=== PATIENT | female | born 1955 | race African-American/Black ===

== ENCOUNTER 2022-05-18 11:07 | Inpatient (IN) | payer OTHER ==
[~2022-05-18] VITALS: Ht 157.5 cm; Wt 46.7 kg
[2022-05-18] MEDS ORDERED: MORPHINE SULFATE 4 MG/ML CPJ (NOT FOR IM USE) IV STA (11:25)
[2022-05-18] MEDS ORDERED: SODIUM CHLORIDE 0.9% 1,000 ML IV ONE (11:30)
[2022-05-18 12:33] LABS: BASOPHILS % 0.7 % (0.0-2.0); HEMATOCRIT. 40.1 % (36.0-48.0); HEMOGLOBIN. 12.7 g/dL (12.0-16.0); LYMPHOCYTES % 24.1 % (20.0-50.0); MEAN CORPUSCULAR HEMOGLOBIN 27.2 pg (28.0-32.0); MEAN CORPUSCULAR VOLUME 85.9 fL (81.0-99.0); MEAN PLATELET VOLUME 9.4 fl (7.4-10.4); MONOCYTES % 9.8 % (2.0-8.0); NEUTROPHILS % 65.4 % (40.0-76.0); PLATELET 289 x1000/uL (130-400); RED BLOOD CELL COUNT 4.67 mill/uL (4.2-5.4); RED CELL DISTRIBUTION WIDTH 21.2 % (11.6-14.6)
[2022-05-18] MEDS ORDERED: MORPHINE SULFATE 4 MG/ML CPJ (NOT FOR IM USE) IV ONE ×3 (14:15→17:45)
[2022-05-18 14:31] LABS: CLARITY URINE CLEAR (CLEAR); COLOR URINE YELLOW (YELLOW); KETONES URINE NEGATIVE (NEGATIVE); LEUKOCYTE ESTERASE URINE NEGATIVE (NEGATIVE); NITRITE URINE NEGATIVE (NEGATIVE); OCCULT BLOOD URINE NEGATIVE (NEGATIVE); PH URINE 8.5 (4.5-8.0); PROTEIN URINE TRACE (NEGATIVE); SPECIFIC GRAVITY URINE 1.014 (1.005-1.030)
[2022-05-18 14:39] LABS: PROTHROMBIN TIME 11.1 sec (9.6-11.0)
[2022-05-18 15:14] LABS: CHLORIDE 100 mEq/L (98-107)
[2022-05-18] MEDS ORDERED: BACLOFEN 10MG TABLET PO ONE (17:45)
[2022-05-18] MEDS ORDERED: HYDRALAZINE 20MG/ML VIAL IV ONE (17:45)
[2022-05-18] MEDS ORDERED: IOHEXOL-300 100 ML BOTTLE ONE (18:07)
[2022-05-18] MEDS ORDERED: IPRATROPIUM/ALBUTEROL 0.5-3(2.5)MG/3ML NEB NEB PRN (20:00)
[2022-05-18] MEDS ORDERED: DOCUSATE SODIUM 100MG CAPSULE PO PRN (20:00)
[2022-05-18] MEDS ORDERED: TRAMADOL 50MG TABLET PO PRN (20:00)
[2022-05-18] MEDS ORDERED: ZOLPIDEM TARTRATE 5MG TABLET PO PRN (20:00)
[2022-05-18] MEDS ORDERED: GUAIFENESIN 200MG/10ML SUGAR FREE UDC PO PRN (20:00)
[2022-05-18] MEDS ORDERED: MAGNESIUM/ALUMINUM HYDROXIDE/SIMETHICONE 30ML UDC PO PRN (20:00)
[2022-05-18] MEDS ORDERED: NITROGLYCERIN 0.4MG TABLET SL SL PRN (20:00)
[2022-05-18] MEDS ORDERED: ONDANSETRON HCL 4MG/2ML INJ IV PRN (20:00)
[2022-05-18] MEDS ORDERED: CLONIDINE 0.1MG TABLET PO PRN (20:00)
[2022-05-18] MEDS ORDERED: LEVOFLOXACIN 500MG PREMIX 100 ML IV SCH (20:30)
[2022-05-18] MEDS: AMLODIPINE 10MG TABLET PO SCH (20:48)
[2022-05-18 20:53] LABS: T4 FREE 1.2 ng/dL (0.76-1.46)
[2022-05-18] MEDS: MORPHINE SULFATE 2 MG/ML CPJ (NOT FOR IM USE) IV PRN (21:01)
[2022-05-18] MEDS: FAMOTIDINE 20MG TABLET PO SCH (21:11)
[2022-05-18] MEDS: ENOXAPARIN 60MG/0.6ML SYR SUBCUT SCH (21:11)
[2022-05-18 21:15] LABS: FOLIC ACID (FOLATE) SERUM 8.9 ng/mL (>5.38)
[2022-05-18] MEDS ORDERED: NALOXONE HCL 0.4MG/ML VIAL IV PRN (21:45)
[2022-05-19] MEDS: HYDROCODONE/ACETAMINOPHEN 10/325MG TABLET PO PRN ×3 (01:03→14:08)
[2022-05-19] MEDS: MORPHINE SULFATE 2 MG/ML CPJ (NOT FOR IM USE) IV PRN ×4 (03:08→19:54)
[2022-05-19 04:56] LABS: CHLORIDE 98 mEq/L (98-107)
[2022-05-19 04:59] LABS: BASOPHILS % 0.5 % (0.0-2.0); EOSINOPHILS % 0.2 % (0.0-5.0); HEMATOCRIT. 39.6 % (36.0-48.0); HEMOGLOBIN. 12.7 g/dL (12.0-16.0); LYMPHOCYTES % 16.3 % (20.0-50.0); MEAN CORPUSCULAR VOLUME 84.5 fL (81.0-99.0); MEAN PLATELET VOLUME 9.4 fl (7.4-10.4); MONOCYTES % 10.1 % (2.0-8.0); NEUTROPHILS % 72.9 % (40.0-76.0); PLATELET 298 x1000/uL (130-400); RED BLOOD CELL COUNT 4.69 mill/uL (4.2-5.4); RED CELL DISTRIBUTION WIDTH 21.2 % (11.6-14.6)
[2022-05-19 05:03] LABS: PHOSPHORUS 3.2 mg/dL (2.5-4.9)
[2022-05-19 06:46] LABS: CREATINE KINASE 29 IU/L (26-192); CREATINE KINASE MB FRACTION < 1.0 ng/mL (0.5-3.6)
[2022-05-19 09:13] LABS: BG BASE EXCESS 1.7 mmol/L (-2.0-2.0); BG CARBOXYHEMOGLOBIN 2.7 % (0.5-1.5); BG DEOXYHEMOGLOBIN 3.7 % (0.0-5.0); BG FRACTION INSPIRED OXYGEN 32; BG HCO3 ACT 26.4 mmol/L (22.0-26.0); BG METHEMOGLOBIN 0.3 % (0.0-1.5); BG OXYGEN SATURATION 96.2 % (92.0-98.5); BG OXYHEMOGLOBIN 93.3 % (94.0-97.0); BG PCO2 42.1 mmHg (35.0-45.0); BG PH 7.416 (7.350-7.450); BG PO2 79.6 mmHg (75.0-100.0); BG SAMPLE SITE RIGHT RADIAL; BG TOTAL HEMOGLOBIN 13.4 g/dL (12.0-18.0); BG VENT MODE NASAL CANNULA
[2022-05-19] MEDS: KETOROLAC 15MG/ML VIAL IV PRN ×2 (10:38→23:14)
[2022-05-19 11:32] LABS: *AMPHETAMINES SCREEN URINE NEGATIVE (NEGATIVE); *BARBITURATES SCREEN URINE NEGATIVE (NEGATIVE); *BENZODIAZEPINES SCREEN URINE PRESUMTIVE POSITIVE (NEGATIVE); *COCAINE SCREEN URINE NEGATIVE (NEGATIVE); CANNABINOID URINE SCREEN PRESUMTIVE POSITIVE (NEGATIVE); METHADONE URINE SCREEN NEGATIVE (NEGATIVE); OPIATES URINE SCREEN PRESUMTIVE POSITIVE (NEGATIVE); PHENCYCLIDINE URINE SCREEN NEGATIVE (NEGATIVE)
[2022-05-19] MEDS: FAMOTIDINE 20MG TABLET PO SCH ×2 (11:59→19:55)
[2022-05-19 12:00] VITALS: BP 175/110
[2022-05-19] MEDS: ENOXAPARIN 60MG/0.6ML SYR SUBCUT SCH ×2 (12:01→20:11)
[2022-05-19] MEDS: AMLODIPINE 10MG TABLET PO SCH (12:02)
[2022-05-19 12:49] VITALS: BP 175/110
[2022-05-19 16:00] VITALS: BP 137/89
[2022-05-19 20:00] VITALS: BP 137/87
[2022-05-19] MEDS ORDERED: LEVOFLOXACIN 250MG PREMIX 50 ML IV SCH (21:00)
[2022-05-20] VITALS: BP 119/85
[2022-05-20] MEDS: MORPHINE SULFATE 2 MG/ML CPJ (NOT FOR IM USE) IV PRN ×2 (01:22→09:34)
[2022-05-20] MEDS: HYDROCODONE/ACETAMINOPHEN 10/325MG TABLET PO PRN (03:13)
[2022-05-20 04:00] VITALS: BP 129/87
[2022-05-20 06:00] LABS: BASOPHILS % 0.6 % (0.0-2.0); EOSINOPHILS % 0.1 % (0.0-5.0); HEMATOCRIT. 37.8 % (36.0-48.0); LYMPHOCYTES % 20.3 % (20.0-50.0); MEAN CORPUSCULAR HEMOGLOBIN 26.9 pg (28.0-32.0); MEAN CORPUSCULAR VOLUME 85.1 fL (81.0-99.0); MEAN PLATELET VOLUME 9.7 fl (7.4-10.4); MONOCYTES % 9.9 % (2.0-8.0); NEUTROPHILS % 69.1 % (40.0-76.0); PLATELET 278 x1000/uL (130-400); RED BLOOD CELL COUNT 4.45 mill/uL (4.2-5.4)
[2022-05-20 06:14] LABS: CHLORIDE 96 mEq/L (98-107)
[2022-05-20 06:20] LABS: PHOSPHORUS 3.2 mg/dL (2.5-4.9)
[2022-05-20 08:00] VITALS: BP 145/91
[2022-05-20] MEDS: AMLODIPINE 10MG TABLET PO SCH (09:34)
[2022-05-20] MEDS: FAMOTIDINE 20MG TABLET PO SCH (09:34)
[2022-05-20] MEDS: ENOXAPARIN 60MG/0.6ML SYR SUBCUT SCH (09:35)
[2022-05-20 10:52] VITALS: BP 145/91
[2022-05-20] MEDS ORDERED: APIX5TAB MT (14:59)
== END 2022-05-20 11:30 | disposition home or self-care (01) | DRG 693 ==
LOC: ER 11:37 → EDBEDREQSVC 18:47 → MICUSO 19:43 → EDBEDREQTM 20:02 → EDBEDREQ 20:02 → 7WST 05-19 11:45
PROVIDERS: ADMIT Internal Medicine; ATTEND Internal Medicine
DX: N13.30 Unspecified hydronephrosis (principal); J96.00 Acute respiratory failure, unspecified whether with hypoxia or hypercapnia; C56.9 Malignant neoplasm of unspecified ovary; C78.6 Secondary malignant neoplasm of retroperitoneum and peritoneum; C77.9 Secondary and unspecified malignant neoplasm of lymph node, unspecified; C79.71 Secondary malignant neoplasm of right adrenal gland; C79.72 Secondary malignant neoplasm of left adrenal gland; C79.89 Secondary malignant neoplasm of other specified sites; E46 Unspecified protein-calorie malnutrition; Z68.1 Body mass index [BMI] 19.9 or less, adult; R18.8 Other ascites; G89.3 Neoplasm related pain (acute) (chronic); Z20.822 Contact with and (suspected) exposure to COVID-19; I10 Essential (primary) hypertension; I70.0 Atherosclerosis of aorta; Z96.619 Presence of unspecified artificial shoulder joint; Z88.6 Allergy status to analgesic agent; I25.2 Old myocardial infarction; Z86.718 Personal history of other venous thrombosis and embolism; Z88.8 Allergy status to other drugs, medicaments and biological substances; Z90.710 Acquired absence of both cervix and uterus; Z95.5 Presence of coronary angioplasty implant and graft; Z74.01 Bed confinement status; Z79.899 Other long term (current) drug therapy; Z86.73 Personal history of transient ischemic attack (TIA), and cerebral infarction without residual deficits; Z82.49 Family history of ischemic heart disease and other diseases of the circulatory system
CPT/HCPCS: 36415; 36600; 71045; 71250; 74176; 74177; 76770; 80048; 80053; 80305; 81003; 82375; 82550; 82553; 82607; 82746; 82805; 82962; 83036; 83540; 83550; 83605; 83735; 83880; 84100; 84145; 84439; 84443; 84484; 85025; 87077; 87186; 87426; 93005; 93970; 99285; J0360; J1650; J1885; J1956; J2270; J2405; J7030; Q9967